=== PATIENT | female | born 1975 ===

== ENCOUNTER 2018-11-14 23:06 | Emergency (ER) | payer OTHER ==
--- NOTE | 2018-11-14 23:13 | EDPHY ---
H & P Time Seen by Provider: 11/14/18 23:10 HPI/ROS: CHIEF COMPLAINT: Suspected alcohol abuse HISTORY OF PRESENT ILLNESS: 43 year old female arrives via ambulance for suspected alcohol abuse. Patient unable to ambulate without assistance. No reports of trauma or assault. No fall from height. No structures of height near patient. REVIEW OF SYSTEMS: 10 systems reviewed and negative with the exception of the elements mentioned in the history of present illness PAST MEDICAL/SURGICAL HISTORY: no anticoagulant use, no relevant medical/ surgical history SOCIAL HISTORY: Positive for witnessed and self disclosed alcohol use PHYSICAL EXAM 1) GENERAL: Well-developed, well-nourished, alert and oriented. Appears to be in no acute distress. Answering questions appropriately.Smells of alcohol. 2) HEAD: Normocephalic, atraumatic 3) HEENT: Pupils equal, round, reactive to light bilaterally. Negative Horners. Nasopharynx, oropharynx, clear. No deformity or angulation of nose. No septal hematoma. No rhinorrhea. No oral trauma. Ears bilaterally with normal tympanic membranes. No hemotympanum. No fluid or blood in the external auditory canal. No raccoon eyes. No Collins sign. Teeth are normally aligned with no gross malocclusion, TMJ bilaterally nontender, facial bones nontender including the zygomatic arch, maxilla mandible. 4) NECK: No cervical collar is on. Posterior cervical spine is nontender, no stepoff, no effusion. Full range of motion which does not elicit any midline cervical spine pain, no posterior midline tenderness, no step-off. 5) LUNGS: Clear to auscultation bilaterally, no wheezes, no rhonchi, no retractions. No obvious signs of trauma. No chest wall pain. No flaring, no grunting. Moving symmetrically. No crepitus. 6) HEART: [Regular rate and rhythm, 7) ABDOMEN: No guarding, no rebound, no focal tenderness, no peritoneal signs, no signs of trauma, no ecchymosis 8) MUSCULOSKELETAL: Moving all extremities, no focal areas of tenderness, no obvious trauma. 9) BACK: No midline vertebral tenderness, no fluctuance, no step-off, no obvious trauma, no visual or palpable abnormality. 10) SKIN: No laceration. No abrasion DIFFERENTIAL DIAGNOSIS: In no particular orderincluding but not limited to hypoglycemia, infectious process, electrolyte abnormality, head injury and intoxicants. Constitutional: Initial Vital Signs Temperature (C) 36.5 C 11/14/18 23:30 Heart Rate 75 11/14/18 23:30 Respiratory Rate 18 11/14/18 23:30 Blood Pressure 133/87 H 11/14/18 23:30 O2 Sat (%) 96 11/14/18 23:30 O2 Delivery Mode Room Air Allergies/Adverse Reactions: No Known Allergies Allergy (Unverified 11/14/18 23:30) Home Medications: Medication Instructions Recorded NK [No Known Home Meds] 11/14/18 Medical Decision Making ED Course/Re-evaluation: 4:00 a.m.: Patient has been observed in the ER. She is sleeping. Care turned over to Dr. Padilla at this time. Departure - Departure Disposition: Home, Routine, Self-Care Clinical Impression: Alcohol abuse Condition: Good Instructions: Abuse of Alcohol (ED) Referrals: Shawn Bolanos MD [Medical Doctor] - 2-3 days, call for appt.
[2018-11-15 05:15] VITALS: BP 133/74
== END 2018-11-15 05:15 | disposition home or self-care (01) ==
DX: F10.129 Alcohol abuse with intoxication, unspecified (principal)